=== PATIENT | female | born 1945 | race African-American/Black ===

== ENCOUNTER → 2016-06-15 | Outpatient (CLI) | payer MEDICARE | LOC: RAD 09:10 | PROVIDERS: ATTEND Urology | DX: N28.1 Cyst of kidney, acquired (principal) | CPT/HCPCS: 76770 ==

== ENCOUNTER → 2017-08-16 | Outpatient (CLI) | payer MEDICARE ==
--- NOTE | 2017-08-16 15:43 | RADIOLOGY REPORT (SQ) ---
EXAM DESCRIPTION: U/S RETROPERITON (RENAL/AORTA) COMPLETED DATE/TIME: 08/16/2017 1:58 pm REASON FOR STUDY: COMPLEX RENAL CYST (N28.1) N28.1 CYST OF KIDNEY, ACQUIRED COMPARISON: 06/15/2016 TECHNIQUE: Dynamic and static grayscale images acquired of the kidneys and bladder and recorded on P ACS. Additional selected color Doppler and spectral images recorded. LIMITATIONS: None. FINDINGS: RIGHT KIDNEY: Normal size, 8.8 cm. Normal echogenicity. No solid or suspicious masses. No hydronephrosis. No calcifications. LEFT KIDNEY: Normal size, 11 cm. Normal echogenicity. No solid or suspicious masses. Complex lower pole cyst measures 6.5 x 6.7 x 5.4 cm. No hydronephrosis. No calcifications. BLADDER: Urinary jets were not seen. OTHER FINDINGS: No other significant finding. IMPRESSION: Stable slightly complex left lower pole cyst. TECHNICAL DOCUMENTATION: JOB ID: [id number] [employer]- All Rights Reserved Reading location - IP/workstation name: [email or web address]
== END ==
LOC: RAD 13:24
PROVIDERS: ATTEND Urology
DX: N28.1 Cyst of kidney, acquired (principal)
CPT/HCPCS: 76770